=== PATIENT | male | born 1990 | race Caucasian/White ===

== ENCOUNTER 2023-07-29 07:21 | Emergency (ER) | payer OTHER, MEDICAID, SELFPAY ==
[2023-07-29 07:29] VITALS: BP 124/63; PULSE 90; RESP 16; TEMP 37.8; O2SAT 95; BMI 25.0
[2023-07-29 08:01] LABS: Basophils % 0.4 %; Hematocrit 35.6 % (37-53); Lymphocytes # 1.1 10^3/uL (0.8-4.8); Lymphocytes % 9.4 %; Mean Corpuscular HGB Conc 35.7 g/dL (30-55); Mean Corpuscular Hemoglobin 30.2 pg (27-33); Mean Corpuscular Volume 84.8 fl (82-101); Mean Platelet Volume 9.1 fL (7.4-10.4); Monocytes % 8.7 %; Neutrophils # 9.28 10^3/uL (1.8-7.7); Neutrophils % 81.1 %; Nucleated Red Blood Cells % 0 %; Platelet Count 196 10^3/cmm (157-399); Red Cell Distribution Width 11.9 % (12.1-15.1); White Blood Count 11.42 10^3/uL (3.29-11.43)
[2023-07-29 08:14] LABS: Anion Gap 13.8 (5-19); Blood Urea Nitrogen 13 mg/dL (6-20); Calcium 8.6 mg/dL (8.5-10.5); Carbon Dioxide 24 mmol/L (22-29); Chloride 98 mmol/L (98-107); Glomerular Filtration Rate 69.3 mL/min (90-130); Glucose 155 mg/dL (65-115); Osmolality Calculated 277 mOsm/kg (285-295); Potassium 3.8 mmol/L (3.5-5.1); Sodium 132 mmol/L (136-145)
--- NOTE | 2023-07-29 08:26 | PC.PHAR ---
ext med history shows acetami/codein 300-30mg (tylenol #3) 1 tab po q4-6h prn filled 07/24/23 3d/s pt states he didnt fill
[2023-07-29 08:55] VITALS: BP 110/62; O2SAT 97
--- NOTE | 2023-07-29 08:58 | W.ED.NAVMDI ---
HPI - Nausea/Vomiting/Diarrhea General: Chief complaint: Nausea/Vomiting/Diarrhea Stated complaint: NV, fever, had tooth pulled Time Seen by Provider: 07/29/23 07:22 Source: patient Mode of arrival: ambulatory Limitations: no limitations History of Present Illness: Patient is a 33-year-old who presents to the emergency department complaining of nausea/vomiting onset 4 days. Patient states he had a tooth extracted on without complication, but states that he soon developed fever and nausea the problem him to visit [facility] emergency department on Friday afternoon. There, he reports a negative work-up and states he was diagnosed with a viral illness and was told to take Tylenol to control his fever and was prescribed Zofran for his nausea and vomiting. He states that the symptoms have not abated, and he has been taking large and frequent amounts of Tylenol, as his fever has still not been controlled. He is now reporting mild weight loss and general myalgias as he states he has not eaten since Friday. He reports to me episodes of vomiting count, but denies noticing any blood or coffee-ground appearance. He denies any bowel changes, significant abdominal pain, chest pain, breathing difficulties, or any other symptoms. He states that he is living at a substance abuse recovery home with a large group of people, but denies any sick contacts that he knows of. He denies any excessive use of cannabis. MD elicited complaint: nausea and vomiting Associated nausea: Yes Associated symtoms: Reports nausea; Denies chest pain, dysuria, palpitations or syncope Review of Systems Const: Reports: fever(s) (Subjective), change in appetite and change in weight; Denies: chills Card: Denies: chest pain, palpitations, irregular heart rhythm, lightheadedness or syncope Resp: Denies: dyspnea GI: Reports: nausea and vomiting; Denies: abdominal pain, hematemesis, coffee ground emesis, diarrhea or change in bowel habits : Denies: dysuria, urinary frequency or urinary urgency Musc: Reports: muscle weakness; Denies: neck pain or back pain Skin/Breast: Denies: rash Physical Exam Const: COMMON NORMALS: no acute distress and patient oriented x3 GENERAL APPEARANCE: cooperative and comfortable ORIENTATION/CONSCIOUSNESS: Yes awake, Yes oriented to person, Yes oriented to place and Yes oriented to time HENMT: COMMON NORMALS: normocephalic, atraumatic and hearing grossly normal bilaterally HEAD & SCALP: normocephalic and atraumatic OTHER: Recently extracted lower right molar without signs of infection Resp: COMMON NORMALS: normal respiratory effort, No retractions, No use of accessory muscles and clear to auscultation bilaterally AUSCULTATION: clear to auscultation bilaterally Cardio: COMMON NORMALS: regular rate, regular rhythm and No murmurs present (Cardio) RATE: regular rate RHYTHM: regular rhythm GI: COMMON NORMALS: Soft to palpation and No hepatosplenomegaly present INSPECTION: Yes normal to inspection AUSCULTATION: Yes normoactive bowel sounds PALPATION: Yes Soft to palpation, No Tenderness to palpation present (GI), No Guarding due to palpation present (GI) and Yes No hepatosplenomegaly present Extremity: COMMON NORMALS: normal to inspection, capillary refill normal, no clubbing, cyanosis or edema, no calf tenderness and no pedal edema Neuro: COMMON NORMALS: patient oriented x3 SENSORIUM/ORIENTATION: Yes oriented to person, Yes oriented to place and Yes oriented to time Skin: COMMON NORMALS: no rashes or lesions noted GENERAL SKIN EXAM: no rashes or lesions noted Course Vital Signs: Vital signs: Vital Signs Temperature 100.0 F H 07/29/23 07:29 Pulse Rate 90 07/29/23 07:29 Respiratory Rate 16 07/29/23 07:29 Blood Pressure 147/83 07/29/23 11:18 Pulse Oximetry 97 07/29/23 08:55 Oxygen Delivery Me thod Room Air 07/29/23 08:55 MDM - Nausea/Vomiting/Diarrhea Medical Decision Making Improved after fluids. No leukocytosis. T. bili is elevated liver functions are normal electrolytes unremarkable. Clinical diet for 24 to 48 hours and advance as tolerated recheck if not improving Medical Records I reviewed the patient's medical records. Lab Data I reviewed the patient's lab results. 07/29/23 07:47 07/29/23 07:47 Laboratory Results WBC 11.42 10^3/uL (3.29-11.43) 07/29/23 07:47 RBC 4.20 10^6/uL (3.85-5.65) 07/29/23 07:47 Hgb 12.70 g/dL (11.27-16.99) 07/29/23 07:47 Hct 35.6 % (37-53) L 07/29/23 07:47 MCV 84.8 fl (82-101) 07/29/23 07:47 MCH 30.2 pg (27-33) 07/29/23 07:47 MCHC 35.7 g/dL (30-55) 07/29/23 07:47 RDW 11.9 % (12.1-15.1) L 07/29/23 07:47 Plt Count 196 10^3/cmm (157-399) 07/29/23 07:47 MPV 9.1 fL (7.4-10.4) 07/29/23 07:47 Neut % (Auto) 81.1 % 07/29/23 07:47 Lymph % (Auto) 9.4 % 07/29/23 07:47 [place] % (Auto) 8.7 % 07/29/23 07:47 Eos % (Auto) 0.0 % 07/29/23 07:47 Baso % (Auto) 0.4 % 07/29/23 07:47 Neut # (Auto) 9.28 10^3/uL (1.8-7.7) H 07/29/23 07:47 Lymph # (Auto) 1.1 10^3/uL (0.8-4.8) 07/29/23 07:47 [place] # (Auto) 1.0 10^3/uL (0.2-0.9) H 07/29/23 07:47 Eos # (Auto) 0.0 10^3/uL (0.0-0.8) 07/29/23 07:47 Baso # (Auto) 0.0 10^3/uL (0.0-0.1) 07/29/23 07:47 Nucleated RBC % (auto) 0 % 07/29/23 07:47 Nucleated RBCs # 0.0 /100WBC 07/29/23 07:47 Sodium 132 mmol/L (136-145) L 07/29/23 07:47 Potassium 3.8 mmol/L (3.5-5.1) 07/29/23 07:47 Chloride 98 mmol/L (98-107) 07/29/23 07:47 Carbon Dioxide 24 mmol/L (22-29) 07/29/23 07:47 Anion Gap 13.8 (5-19) 07/29/23 07:47 BUN 13 mg/dL (6-20) 07/29/23 07:47 Creatinine 1.2 mg/dL (0.7-1.2) 07/29/23 07:47 GFR Calculation 69.3 mL/min (90-130) L 07/29/23 07:47 Glucose 155 mg/dL (65-115) H 07/29/23 07:47 Calculated Osmolality 277 mOsm/kg (285-295) L 07/29/23 07:47 Calcium 8.6 mg/dL (8.5-10.5) 07/29/23 07:47 Total Bilirubin 1.7 mg/dL (0.15-1.2) H 07/29/23 07:47 Direct Bilirubin 0.30 mg/dL (0.00-0.30) 07/29/23 07:47 AST 12 U/L (0-40) 07/29/23 07:47 ALT 12 U/L (0-41) 07/29/23 07:47 Alkaline Phosphatase 77 U/L (40-130) 07/29/23 07:47 Total Protein 6.7 g/dL (6.6-8.7) 07/29/23 07:47 Albumin 3.7 g/dL (3.5-5.2) 07/29/23 07:47 Globulin 3.0 g/dL (1.3-4.6) 07/29/23 07:47 Lipase 11 U/L (13-60) L 07/29/23 07:47 Acetaminophen < 5.0 ug/mL (10-30) L 07/29/23 07:47 Coronavirus 229E (PCR) Not detected (NOT DETECT) 07/29/23 11:15 Influenza Type A Ag negative (Negative) 07/29/23 11:15 Influenza Type B Ag negative (Negative) 07/29/23 11:15 SARS-CoV-2 (PCR) Not detected (NOT DETECT) 07/29/23 11:15 No radiology studies performed this visit Discharge Plan Discharge Patient Disposition: Home Clinical Impression: Gastroenteritis Condition: Stable Prescriptions: New promethazine 25 mg tablet 25 mg PO Q6H PRN (Reason: nausea and vomiting) Qty: 20 0RF No Action Tylenol Ex Str Rapid Release 500 mg Tablet 1,000 mg PO Q6H PRN (Reason: Pain) ketorolac 10 mg tablet 10 mg PO Q6H PRN (Reason: Pain) ondansetron 4 mg tablet,disintegrating 4 mg PO Q6H PRN (Reason: Nausea And Vomiting) Discharge Orders: Discharge ED (Routine); Ordered 07/29/23 Ordered By: Yonas Reina Discharge Diet: Clear Liquid Discharge Activity: Increase activity as tolerated Patient Instructions: Clear Liquid Diet (ED), Gastroenteritis (ED), Opioid Safety, Pain Management Activity Restrictions/Additional Instructions: Thank you for choosing [facility] for your healthcare needs today. Please realize this is an emergency room and that we are providing you with a medical screening exam and this may not be complete and all inclusive of all the testing and or work up that you may need to determine your ailment or severity of your illness. It is very important that you follow up as instructed or that you return to the Emergency Department should you have concerns or if your condition changes or worsens in any way. Clear liquid diet 24 to 48 hours and advance as tolerated you can try the promethazine instead of ondansetron for nausea. Tylenol and ibuprofen as needed for headaches. Do not take dosages exceeding the manufactures recommendation for other medication. Coding Level of Care Code ED [employer] for [employer]
[2023-07-29 10:38] LABS: Alanine Aminotransferase 12 U/L (0-41); Albumin Level 3.7 g/dL (3.5-5.2); Alkaline Phosphatase 77 U/L (40-130); Aspartate Amino Transferase 12 U/L (0-40); Lipase 11 U/L (13-60); Total Bilirubin 1.7 mg/dL (0.15-1.2); Total Protein 6.7 g/dL (6.6-8.7)
[2023-07-29 10:42] LABS: Acetaminophen < 5.0 ug/mL (10-30)
[2023-07-29] MEDS: ondansetron 2 mg/ML SDV 2 mL 4 MG IVP (11:03)
[2023-07-29] MEDS: acetaminophen 500 mg Tablet 1000 MG PO (11:03)
[2023-07-29] MEDS: sodium chloride 0.9% 1,000 ML 999 ML IV (11:03)
[2023-07-29 11:18] VITALS: BP 147/83
[2023-07-29 11:42] LABS: Influenza A by IFA negative (Negative); Influenza B by IFA negative (Negative)
[2023-07-29 13:09] LABS: Adenovirus Not Detected (NOT DETECT); Chlamydia Pneumoniae Not Detected (NOT DETECT); Coronavirus 229E,HKU1,NL63,OC4 Not Detected (NOT DETECT); Human Metapneumovirus Not Detected (NOT DETECT); Human Rhinovirus/Enterovirus Not Detected (NOT DETECT); Influenza A Not Detected (NOT DETECT); Influenza A H1 Not Detected (NOT DETECT); Influenza A H1-2009 Not Detected (NOT DETECT); Influenza A H3 Not Detected (NOT DETECT); Influenza B Not Detected (NOT DETECT); Mycoplasma Pneumoniae Not Detected (NOT DETECT); Parainfluenza Virus Type 1 Not Detected (NOT DETECT); Parainfluenza Virus Type 2 Not Detected (NOT DETECT); Parainfluenza Virus Type 3 Not Detected (NOT DETECT); Parainfluenza Virus Type 4 Not Detected (NOT DETECT); Respiratory Syncytial Virus A Not Detected (NOT DETECT); Respiratory Syncytial Virus B Not Detected (NOT DETECT); SARS-COV-2 Not Detected (NOT DETECT)
== END 2023-07-29 12:03 | disposition home or self-care (01) ==
PROVIDERS: Emergency Provider Family Medicine
DX: K52.9 Noninfective gastroenteritis and colitis, unspecified (principal); Z11.52 Encounter for screening for COVID-19
CPT/HCPCS: 36415; 80048; 80076; 80307; 83690; 85025; 87635; 87804; 96374; 99284; J2405; J7030

== ENCOUNTER → 2024-02-21 11:41 | Outpatient (BNVA) | payer OTHER, SELFPAY | PROVIDERS: Visit Provider Emergency Medicine | DX: R68.89 Other general symptoms and signs (principal); R11.0 Nausea; K52.9 Noninfective gastroenteritis and colitis, unspecified | CPT/HCPCS: 87400 ==